=== PATIENT | female | born 1980 | race Hispanic/Latino ===

== ENCOUNTER 2022-11-12 10:56 | Day surgery (SDC) | payer BC ==
[2022-11-08 11:34] VITALS: BMI 24.4
[2022-11-11 16:22] LABS: Hemoglobin 11.2 g/dL (12.0-15.5); Mean Corpuscular HGB CONC 32.2 g/dL (32.0-36.0); Mean Corpuscular Hemoglobin 28.5 pg (27.0-33.0); Mean Corpuscular Volume 88.5 fl (81.6-98.3); Mean Platelet Volume 9.8 fl (7.4-10.4); Platelet Count 309 10x3/uL (150-450); RBC Distribution Width 11.8 % (11.5-14.5); Red Blood Cell (RBC) Count 3.93 10x6/uL (3.90-5.03)
[2022-11-11 16:26] LABS: BHCG - Serum Negative (NEGATIVE); Pregs Control Background? CLEAR/WHITE (CLR/WHITE); Pregs Control Bar Appear? YES (CONTROL BAR)
[~2022-11-12 10:56] MED LIST: CeleCOXIB 100 MG CAP ONE; Famotidine/PF 20 mg/2ml Vial ONE; Gabapentin 300 MG CAP ONE
[2022-11-12] MEDS ORDERED: Midazolam HCl 2 mg/2 ml Vial ONE (12:05)
[2022-11-12] MEDS ORDERED: Scopolamine 1.5 mg/72 hour Patch ONE (12:05)
[2022-11-12] MEDS ORDERED: Bupivacaine HCl 0.5%/Epinephrine 1:200,000/PF 30 ml Vial ONE (12:41)
[2022-11-12] MEDS ORDERED: PROPOFOL 20 ML ONE ×2 (12:44)
[2022-11-12] MEDS ORDERED: SUGAMMADEX SODIUM 200 MG/2 ML VIAL ONE ×2 (12:44→12:45)
[2022-11-12] MEDS ORDERED: Propofol 1,000 MG/100 ML VIAL IV ONE (12:45)
[2022-11-12] MEDS ORDERED: Ondansetron PF 4 MG/2 ML Vial ONE (12:46)
[2022-11-12] MEDS ORDERED: Rocuronium Bromide 10 MG/ML (10ML VIAL) ONE (12:46)
[2022-11-12] MEDS ORDERED: Fentanyl 250 MCG/5 ML VIAL ONE (12:46)
[2022-11-12] MEDS ORDERED: Dexamethasone 4 mg/ml Vial ONE (12:46)
[2022-11-12] MEDS ORDERED: Esmolol 100 MG/10 ML VIAL ONE (12:47)
[2022-11-12] MEDS ORDERED: CEFAZOLIN 2 GM VIAL ONE (13:07)
[2022-11-12] MEDS ORDERED: Ketorolac Tromethamine 30 MG/ML VIAL ONE (14:16)
[2022-11-12] MEDS ORDERED: HYDROcodone/Acetaminophen 5/325 mg Tablet ONE (15:45)
== END 2022-11-12 17:25 | disposition home or self-care (01) ==
LOC: CSHSDC 10:56
PROVIDERS: ATTEND Student in an Organized Health Care Education/Training Program
PROC: 0UT94ZZ Resection of Uterus, Percutaneous Endoscopic Approach (ICD-10-PCS; principal; 2022-11-12)
PROC: 0UT74ZZ Resection of Bilateral Fallopian Tubes, Percutaneous Endoscopic Approach (ICD-10-PCS; principal; 2022-11-12)
DX: N80.03 Adenomyosis of the uterus (principal); N92.0 Excessive and frequent menstruation with regular cycle; D64.9 Anemia, unspecified; E78.5 Hyperlipidemia, unspecified; Z87.59 Personal history of other complications of pregnancy, childbirth and the puerperium; Z79.899 Other long term (current) drug therapy; Z88.8 Allergy status to other drugs, medicaments and biological substances; Z88.6 Allergy status to analgesic agent; Z88.1 Allergy status to other antibiotic agents
CPT/HCPCS: 36415; 84703; 85027; 86850; 86900; 86901; 88307; C1889; J1100; J1885; J2250; J2405; J2704; J3010; S0028